=== PATIENT | male | born 1975 | race Hispanic/Latino ===

== ENCOUNTER 2016-09-18 09:36 | Outpatient (CLI) | payer BC ==
--- NOTE | 2016-09-18 12:14 | RAD ---
THORACIC SPINE TWO VIEWS HISTORY: Spastic thoracic back muscle. Upper back pain. FINDINGS: No fracture, subluxation, or bony destruction is seen. POS: [facility]
== END 2016-09-18 09:37 | disposition home or self-care (01) ==
LOC: BURRAD 09:36
PROVIDERS: ATTEND Family Medicine
DX: M62.830 Muscle spasm of back (principal)
CPT/HCPCS: 72070